=== PATIENT | female | born 1995 | race Caucasian/White ===

== ENCOUNTER 2020-09-03 13:42 | Outpatient (CLI) | payer OTHER | END 2020-09-03 16:08 | disposition home or self-care (01) | LOC: GENOP 13:42 | DX: O09.893 Supervision of other high risk pregnancies, third trimester (principal) | CPT/HCPCS: 59025; 81001; 83518 ==

== ENCOUNTER 2020-09-05 19:36 | Outpatient (CLI) | payer OTHER | END 2020-09-05 21:06 | disposition home or self-care (01) | LOC: GENOP 19:36 | DX: O62.9 Abnormality of forces of labor, unspecified (principal); O26.893 Other specified pregnancy related conditions, third trimester; R10.30 Lower abdominal pain, unspecified; O99.333 Smoking (tobacco) complicating pregnancy, third trimester; F17.210 Nicotine dependence, cigarettes, uncomplicated; Z3A.37 37 weeks gestation of pregnancy | CPT/HCPCS: G0463 ==

== ENCOUNTER 2020-09-10 00:39 | Outpatient (CLI) | payer OTHER | END 2020-09-10 10:10 | disposition home or self-care (01) | LOC: GENOP 00:39 | DX: O62.9 Abnormality of forces of labor, unspecified (principal); O99.613 Diseases of the digestive system complicating pregnancy, third trimester; R19.7 Diarrhea, unspecified; O99.353 Diseases of the nervous system complicating pregnancy, third trimester; F32.9 Major depressive disorder, single episode, unspecified; O99.333 Smoking (tobacco) complicating pregnancy, third trimester; F17.210 Nicotine dependence, cigarettes, uncomplicated; Z3A.38 38 weeks gestation of pregnancy; Z88.8 Allergy status to other drugs, medicaments and biological substances; Z88.5 Allergy status to narcotic agent; Z91.048 Other nonmedicinal substance allergy status | CPT/HCPCS: 81001; 96360; 96361 ==

== ENCOUNTER 2020-09-14 16:13 | Inpatient (IN) | payer OTHER ==
[~2020-09-14] VITALS: Ht 157.5 cm; Wt 54.4 kg
[2020-09-14 16:55] LABS: HEMOGLOBIN 11.4 gm/dl (12.3-15.3); RED BLOOD COUNT 3.63 M/UL (4.00-5.10); WHITE BLOOD COUNT 15.3 K/UL (4.5-11.0)
[2020-09-16 05:58] LABS: HEMOGLOBIN 9.7 gm/dl (12.3-15.3)
[2020-09-17] MEDS ORDERED: DOCUSATE SODIU100 MG PO (10:40)
[2020-09-17] MEDS ORDERED: IBUPROFEN600 MG PO (10:40)
== END 2020-09-17 15:22 | disposition home or self-care (01) | DRG 807 ==
LOC: GENOP 16:13 → OB 16:30
PROVIDERS: Obstetrics & Gynecology; ADMIT Obstetrics & Gynecology
PROC: 10E0XZZ Delivery of Products of Conception, External Approach (ICD-10-PCS; principal; 2020-09-14)
PROC: 10907ZC Drainage of Amniotic Fluid, Therapeutic from Products of Conception, Via Natural or Artificial Opening (ICD-10-PCS; 2020-09-14)
PROC: 4A0H7CZ Measurement of Products of Conception, Cardiac Rate, Via Natural or Artificial Opening (ICD-10-PCS; 2020-09-14)
PROC: 0U7C7ZZ Dilation of Cervix, Via Natural or Artificial Opening (ICD-10-PCS; 2020-09-14)
PROC: 3E02340 Introduction of Influenza Vaccine into Muscle, Percutaneous Approach (ICD-10-PCS; 2020-09-15)
PROC: 3E0234Z Introduction of Serum, Toxoid and Vaccine into Muscle, Percutaneous Approach (ICD-10-PCS; 2020-09-15)
DX: O99.334 Smoking (tobacco) complicating childbirth (principal); Z37.0 Single live birth; Z3A.39 39 weeks gestation of pregnancy; Z20.822 Contact with and (suspected) exposure to COVID-19; F17.210 Nicotine dependence, cigarettes, uncomplicated; Z23 Encounter for immunization
CPT/HCPCS: 36415; 51702; 81001; 82800; 85014; 85018; 85025; 85461; 86850; 86900; 86901; 90472; 90686; 90715; 96372; J2405; J2590; J2790; J7120; U0002

== ENCOUNTER 2021-01-02 23:41 | Emergency (ER) | payer OTHER ==
[~2021-01-02 23:41] MED LIST: DOCUSATE SODIU100 MG PO; IBUPROFEN600 MG PO
[2021-01-03] MEDS ORDERED: LODINE CAP 300300 MG PO (01:58)
== END 2021-01-03 02:10 | disposition home or self-care (01) ==
LOC: ER1 23:41
DX: S83.92XA Sprain of unspecified site of left knee, initial encounter (principal); F17.210 Nicotine dependence, cigarettes, uncomplicated; Z88.5 Allergy status to narcotic agent; Z88.8 Allergy status to other drugs, medicaments and biological substances; V80.010A Animal-rider injured by fall from or being thrown from horse in noncollision accident, initial encounter; Y92.009 Unspecified place in unspecified non-institutional (private) residence as the place of occurrence of the external cause
CPT/HCPCS: 29530; 73564; 99283

== ENCOUNTER 2021-01-24 19:29 | Emergency (ER) | payer OTHER ==
[~2021-01-24 19:29] MED LIST changes: +LODINE CAP 300300 MG PO
== END 2021-01-24 20:59 | disposition home or self-care (01) ==
LOC: ER1 19:29
DX: O99.891 Other specified diseases and conditions complicating pregnancy (principal); M54.5 Low back pain; O99.331 Smoking (tobacco) complicating pregnancy, first trimester; F17.290 Nicotine dependence, other tobacco product, uncomplicated; Z88.5 Allergy status to narcotic agent
CPT/HCPCS: 84703; 99282

== ENCOUNTER 2021-01-29 23:29 | Emergency (ER) | payer OTHER ==
[2021-01-30 00:49] LABS: HEMOGLOBIN 13.3 gm/dl (12.3-15.3); RED BLOOD COUNT 4.29 M/UL (4.00-5.10); WHITE BLOOD COUNT 8.8 K/UL (4.5-11.0)
[2021-01-30 01:13] LABS: BUN/CREATININE RATIO 19 (0-10)
[2021-01-30] MEDS ORDERED: PRENATAL COMPL1 EACH PO (03:54)
[2021-01-30] MEDS ORDERED: BENTYL 20MG TAB20 MG PO (03:54)
[2021-01-30] MEDS ORDERED: REGLAN10 MG PO (03:54)
== END 2021-01-30 04:31 | disposition home or self-care (01) ==
LOC: ER1 23:29
PROVIDERS: Physician Assistant
DX: O20.0 Threatened abortion (principal); O99.331 Smoking (tobacco) complicating pregnancy, first trimester; F17.290 Nicotine dependence, other tobacco product, uncomplicated; Z88.5 Allergy status to narcotic agent; Z88.6 Allergy status to analgesic agent; Z3A.11 11 weeks gestation of pregnancy
CPT/HCPCS: 76830; 80053; 81001; 84702; 84703; 85025; 86850; 86900; 86901; 87086; 99284; J2790

== ENCOUNTER 2021-01-30 23:18 | Emergency (ER) | payer OTHER ==
[~2021-01-30 23:18] MED LIST changes: +BENTYL 20MG TAB20 MG PO; +PRENATAL COMPL1 EACH PO; +REGLAN10 MG PO
[2021-01-31 00:47] LABS: BUN/CREATININE RATIO 12 (0-10)
[2021-01-31 01:17] LABS: HEMOGLOBIN 12.8 gm/dl (12.3-15.3); RED BLOOD COUNT 4.19 M/UL (4.00-5.10)
== END 2021-01-31 01:50 | disposition home or self-care (01) ==
LOC: ER1 23:18
PROVIDERS: Physician Assistant Medical
DX: O20.0 Threatened abortion (principal); F17.290 Nicotine dependence, other tobacco product, uncomplicated; Z88.5 Allergy status to narcotic agent; Z88.8 Allergy status to other drugs, medicaments and biological substances; Z3A.01 Less than 8 weeks gestation of pregnancy
CPT/HCPCS: 80053; 81001; 84702; 85025; 99284

== ENCOUNTER 2021-07-06 18:51 | Emergency (ER) | payer OTHER ==
[2021-07-06 19:46] LABS: HEMOGLOBIN 14.5 gm/dl (12.3-15.3); RED BLOOD COUNT 4.55 M/UL (4.00-5.10); WHITE BLOOD COUNT 7.5 K/UL (4.5-11.0)
[2021-07-06 20:13] LABS: BUN/CREATININE RATIO 16 (0-10)
[2021-07-06] MEDS ORDERED: ZOFRAN4 MG PO (22:33)
== END 2021-07-06 22:40 | disposition home or self-care (01) ==
LOC: ER1 18:51
PROVIDERS: Physician Assistant Medical
DX: A08.4 Viral intestinal infection, unspecified (principal); F17.200 Nicotine dependence, unspecified, uncomplicated; Z20.822 Contact with and (suspected) exposure to COVID-19
CPT/HCPCS: 80053; 81001; 84703; 85025; 86140; 93005; 96374; 99284; J2405; J7030; U0002

== ENCOUNTER 2022-01-10 00:19 | Emergency (ER) | payer OTHER ==
[~2022-01-10 00:19] MED LIST changes: +ZOFRAN4 MG PO
[2022-01-10 06:27] LABS: RED BLOOD COUNT 4.46 M/UL (4.00-5.10); WHITE BLOOD COUNT 6.4 K/UL (4.5-11.0)
[2022-01-10 06:28] LABS: BUN/CREATININE RATIO 13 (0-10)
[2022-01-10] MEDS ORDERED: ZOFRAN ODT 4 MG4 MG SL (06:36)
== END 2022-01-10 06:50 | disposition home or self-care (01) ==
LOC: ER1 00:19
PROVIDERS: Student in an Organized Health Care Education/Training Program
DX: R10.30 Lower abdominal pain, unspecified (principal); R11.0 Nausea; Z79.899 Other long term (current) drug therapy; F17.290 Nicotine dependence, other tobacco product, uncomplicated
CPT/HCPCS: 80053; 81001; 84703; 85025; 99284